=== PATIENT | female | born 1975 | race Caucasian/White ===

== ENCOUNTER 2017-09-26 06:10 | Observation (INO) ==
--- NOTE | 2017-09-26 08:21 | General Surg History&Physical ---
Date of Encounter: 09/26/17 Time of Encounter: 08:00 Assessment and Plan (1) Acute appendicitis Current Visit: No Status: Acute The assessment and plan as outlined above was discussed with the patient and/or family members who expressed understanding and agreement. All questions were answered. The patient has CAT scan evidence and physical examination evidence of acute appendicitis. She has a mild leukocytosis and negative test. We will plan urgent laparoscopic appendectomy. Qualifiers: Acute appendicitis type: with localized peritonitis Qualified Code(s): K35.3 - Acute appendicitis with localized peritonitis History of Present Illness Chief complaint: Right lower quadrant abdominal pain HPI: Ms. Villalobos is a 42 year old female Who had acute onset abdominal pain late yesterday. The pain worsened throughout the evening. She has pain with motion. She is anorexic. She sought evaluation in the [facility] emergency room. CAT scan demonstrated acute appendicitis. She was transferred for further evaluation. This morning on history she states that she has localized right lower quadrant abdominal pain and pain with motion. I personally reviewed the CAT scan images. Findings are consistent with acute appendicitis. We will plan urgent laparoscopic appendectomy Past Med Surg Social Fam HX - Past Medical History Medical history: other Psychiatric history: depression - Past Surgical History Surgical History: other - Social History Smoking Status: Never smoker Smokeless Tobacco Status: No Alcohol use: none Drug use: none Medications and Allergies Amoxil 09/26/17 [History] Guaifenesin/Dm/Pseudoephedrine [Capmist Dm Tablet] 1 each PO 09/26/17 [History] HydrOXYzine Pamoate [Vistaril] 50 mg PO PRN PRN 09/26/17 [History] Sertraline [Zoloft] 50 mg PO DAILY 09/26/17 [History] 3 Allergy/AdvReac Type Severity Reaction Status Date / Time No Known Allergies Allergy Verified 02/28/16 06:46 Review of Systems All systems PM: The remainder of the systems were reviewed and are negative General Surgery Exam Initial Vital Signs Temp Pulse Resp BP Pulse Ox 98.5 F 97 14 100/67 97 09/26/17 08:15 09/26/17 08:15 09/26/17 08:15 09/26/17 08:15 09/26/17 08:15 - General physical appearance well developed, well nourished, no distress - Respiratory normal expansion, normal respiratory effort, clear to percussion, clear to auscultation - Cardiovascular Cardiovascular exam: Present: RRR, no murmurs/rubs/gallops - Abdomen Abdomen general surgery: Present: guarding, rebound Abdominal Tenderness: Present: RLQ - Neurologic Present: CN 2-12 grossly intact, normal coordination, normal sensation - Psychiatric Psychiatric general surgery: Present: appropriate, oriented to person, oriented to place, oriented to time, speech is normal, memory intact Results - Labs All other labs normal. - Imaging CT scan - abdomen: image reviewed (I personally reviewed the CAT scan images. Findings are consistent with acute appendicitis.)
[2017-09-26] MEDS ORDERED: Ondansetron 4 MG/2 ML VIAL IVP PRN ×2 (08:24→11:33)
[2017-09-26] MEDS ORDERED: *HR* OxyCODONE/APAP 10/325 TABLET PO PRN ×2 (08:24→11:33)
[2017-09-26] MEDS ORDERED: 0.9 % Sodium Chloride 1,000 ML IVC SCH (08:30)
[2017-09-26] MEDS ORDERED: *HR* Midazolam HCl 2 MG/2 ML VIAL ONE (09:10)
[2017-09-26] MEDS ORDERED: *HR* Propofol 200 MG/20 ML VIAL IVP ONE (09:10)
[2017-09-26] MEDS ORDERED: *HR* FentaNYL (PF) 100 MCG/2 ML VIAL ONE (09:10)
[2017-09-26] MEDS ORDERED: *HR* Succinylcholine 200 MG/10 ML VIAL IVP ONE (09:11)
[2017-09-26] MEDS ORDERED: Lidocaine -MPF 2% 2 ML VIAL ONE (09:11)
[2017-09-26] MEDS ORDERED: *HR* Cisatracurium 10 MG/5 ML VIAL IV ONE (09:11)
[2017-09-26] MEDS ORDERED: Lidocaine -MPF 4% 5 ML AMPUL ONE (09:33)
[2017-09-26] MEDS ORDERED: CefOXitin 1,000 MG VIAL ONE (09:40)
--- NOTE | 2017-09-26 09:40 | Anesthesia Evaluation PreOp ---
Date of Encounter: 09/26/17 Time of Encounter: 09:38 - Past History Planned Operation: Laparoscopic Appendectomy Cardiac History: Denies any Significant Hx Pulmonary History: Other (S/P URI x 1 week) TOBACCO SIEVE OPERATOR History: Denies Any Significant HX Other Medical History: Other (anxiety/depression) Anesthesia History: No Prior Anesthetic Complications, Past Anesthesia Test: Negative (09/26/2017) Alcohol Use: none Drug use: none Medications and Allergies Amoxicillin/Clavulanate [Augmentin] 09/26/17 [History] MethylPREDNISolone [MethylPREDNISolone Dose Pack] 4 mg PO 09/26/17 [History] Sertraline [Zoloft] 50 mg PO DAILY 09/26/17 [History] 3 Allergy/AdvReac Type Severity Reaction Status Date / Time No Known Allergies Allergy Verified 02/28/16 06:46 - Meds/Allergy Pre-op Review Medications Reviewed: Yes Allergies Reviewed: Yes Beta Blockers on Current Med List: No Anesthesia Results - Labs 09/26/17 09/26/17 09/26/17 04:33 04:45 04:45 WBC 11.5 H Hgb 12.4 Hct 36.1 Plt Count 242 Sodium 135 L Potassium 3.8 BUN 11 Creatinine 0.78 Urine Test Negative - Imaging Additional studies: Laboratory Tests Anesthesia Exam Vital Signs/O2 Sat, Most Current Temp Pulse Resp BP Pulse Ox 98.5 F 97 14 100/67 97 09/26/17 08:15 09/26/17 08:15 09/26/17 08:15 09/26/17 08:15 09/26/17 08:15 Height: 5'4''/1.63m Weight: 191 lbs/86.8 kg NPO (# of Hours): 8 Pain Scale: 0 Pain Scale Used: Numeric (1 - 10) - HEENT Pupil (Motor): EOMI Mallampati: III Teeth: Normal Oral Opening: Greater than 3 - TOBACCO SIEVE OPERATOR LOC: Oriented TOBACCO SIEVE OPERATOR Motor: Normal RUE, Normal LUE, Normal RLE, Normal LLE, Normal Face TOBACCO SIEVE OPERATOR Sensory: Normal: RUE, LUE, RLE, LLE, Face - Cardiac Rhythm: Regular Murmur: None - Pulmonary Breath Sounds: bilateral Clear Respiratory Effort: Symmetrical Anesthesia Assess/Plan ASA Score: 2 Modified Julio Cesar Scale for Level of Consciousness: Cooperative, oriented, and tranquil Anesthetic Plan: General Monitoring Plan: Standard Monitors Recovery Plan: PACU
[2017-09-26] MEDS ORDERED: Albuterol 2.5 MG/3 ML NEBULIZER ONE (09:46)
[2017-09-26] MEDS ORDERED: Albuterol 2.5 MG/3 ML NEBULIZER IH ONE (09:48)
[2017-09-26] MEDS ORDERED: *HR* OxyCODONE Immed Rel 5 MG TABLET PO PRN (09:49)
[2017-09-26] MEDS ORDERED: *HR* Promethazine 25 MG/ML VIAL IVP PRN (09:49)
[2017-09-26] MEDS ORDERED: *HR* FentaNYL (PF) 100 MCG/2 ML VIAL IVP PRN (09:49)
[2017-09-26] MEDS ORDERED: Acetaminophen IV 1,000 MG/100 ML INFUS..BTL ONE (09:51)
[2017-09-26] MEDS ORDERED: cefOXitin 1,000 MG, Sodium Chloride IRRigation 1,000 ML IR ONE (10:00)
[2017-09-26] MEDS ORDERED: CefOXitin 2,000 MG VIAL ONE (10:00)
[2017-09-26] MEDS ORDERED: Dexamethasone 4 MG/ML VIAL ONE (10:24)
[2017-09-26] MEDS ORDERED: Ondansetron 4 MG/2 ML VIAL ONE (10:24)
[2017-09-26] MEDS ORDERED: Ketorolac 30 MG/ML VIAL ONE (10:39)
--- NOTE | 2017-09-26 10:53 | Operative Note ---
Date of procedure: 09/26/17 Pre-op diagnosis: Acute appendicitis Post-op diagnosis: other (Perforated appendicitis with fecalith in the abdomen and free pus) Procedure: Laparoscopic appendectomy Anesthesia: SIDRA Surgeon: Manuel De León Was there an assistant customer service manager present: No Estimated blood loss (cc): 10 Specimen: Perforated appendix and appendicolith Condition: stable Disposition: PACU Procedure in Detail: After informed consent the patient was taken to the major operative suite placed in the supine position given adequate general anesthetic. The abdomen was prepped and draped in sterile fashion utilizing ChloraPrep standard draping techniques. Timeout was taken and the patient is identified. I made a vertical midline incision below the umbilicus and dissected down to level of fascia. 2 traction stitches of 0 Vicryl placed fashion. Placed a Bass trocar into the abdomen under direct vision. Abdomen was insufflated to 15 mmHg pressure CO2. I placed a 5 mm trocar in the suprapubic area and a 12 mm trocar in the right upper quadrant. The perforated appendix was visualized. There was free pus. There is a free appendicolith in the right gutter. The appendix was densely adherent. I mobilized the lateral peritoneal attachments. The forceps were used to make a window between the mesial appendix and the base of the cecum. I then used a vascular stapler to divide the mesial appendix. Hemostasis was not complete. I placed 2 10 mm clips on the staple line and this insured complete hemostasis. The appendix was then divided off the base the cecum with a gastrointestinal load on the laparoscopic stapler. I recovered the appendix and the appendicolith in a specimen bag and removed them from the abdomen. The right gutter was irrigated with copious amounts of antibiotic containing solution. Fascia was closed with 0 Vicryl the skin with 2 -0 Vicryl and 4-0 Vicryl. She tolerated the procedure well.
--- NOTE | 2017-09-26 11:24 | Anesthesia Evaluation Post Op ---
Date of Encounter: 09/26/17 Time of Encounter: 11:23 - Vital Signs Vital Signs: Vital Signs/O2 Sat, Most Current Temp Pulse Resp BP Pulse Ox 97.4 F L 98 20 105/61 96 09/26/17 10:55 09/26/17 11:15 09/26/17 11:15 09/26/17 11:15 09/26/17 11:15 - Lungs Lungs: Clear Ascult./Percussion - Airway Airway: Non-obstructed - Cardiovascular Regular Rate - Mental Status Mental Status: Asleep with brisk response to light stimulation - Pain Pain Scale: 4 Pain Scale used: Numeric (1 - 10) - Nausea Vomiting Nausea Vomiting: Not Present - Hydration Hydration: NPO, Has not voided - Discharge PostOp Status: Transfer Patient to floor
[2017-09-26] MEDS ORDERED: OXYCODONE Oral CONC 10 MG/0.5 ML ORAL.SYG SL PRN (11:33)
[2017-09-26] MEDS: *HR* HYDROcodone/Acet 10/325 mg TABLET PO PRN ×2 (12:09→19:37)
[2017-09-26] MEDS: 0.9 % Sodium Chloride 1,000 ML IVC SCH (15:58)
[2017-09-26] MEDS: Piperacillin/Tazobactam 3.375 GM in 0.9 % Sodium Chloride Mini Bag 100 ML IVPB SCH ×2 (15:58→23:30)
[2017-09-27] MEDS: *HR* HYDROcodone/Acet 10/325 mg TABLET PO PRN ×4 (00:43→22:10)
[2017-09-27] MEDS: 0.9 % Sodium Chloride 1,000 ML IVC SCH (02:05)
[2017-09-27 05:28] LABS: Basophils % 0.1 %; Eosinophils % 0.2 %; Hematocrit 30.3 % (35.3-44.9); Immature Granulocytes % 0.5 % (0-4); Lymphocytes # 0.9 K/mcL (0.6-4.6); Lymphocytes % 7.6 %; Mean Corpuscular Hemoglobin 29.2 pg (28.0-33.3); Mean Corpuscular Volume 88.6 fL (83.0-100.0); Mean Platelet Volume 9.9 fL (9.4-12.4); Monocytes # 0.6 K/mcL (0.0-1.3); Monocytes % 4.8 %; Platelet Count 227 K/mcL (140-400); Red Blood Count 3.42 M/mcL (3.82-4.97); Red Cell Distribution Width 12.6 % (11.5-14.5); Segmented Neutrophils % 86.8 %
[2017-09-27 05:49] LABS: BUN/Creatinine Ratio 16 (6-26); Blood Urea Nitrogen 10 mg/dL (6-20); Calcium 8.1 mg/dL (8.6-10.3); Carbon Dioxide 23 mEq/L (23-29); Chloride 110 mEq/L (98-107); Glucose 107 mg/dL (70-105); Osmolality,Calculated 286 (280-300); Potassium 3.7 mEq/L (3.5-5.1); Sodium 138 mEq/L (136-145); eGFR For African Americans > 60 (> 60); eGFR For Non-African Americans > 60 (> 60)
[2017-09-27] MEDS: Piperacillin/Tazobactam 3.375 GM in 0.9 % Sodium Chloride Mini Bag 100 ML IVPB SCH ×3 (08:58→23:48)
--- NOTE | 2017-09-27 09:36 | General Surgery Progress Note ---
<Say Parra - Last Filed: 09/27/17 09:54> Date of Encounter: 09/27/17 Time of Encounter: 07:40 - Assessment and Plan (1) Acute appendicitis Current Visit: Yes Status: Acute POD#[address] De León in setting of perforated appendix. Presence of free pus and free appendicolith in the right gutter. On Zosyn, afebrile, 11.[address] Plan: Patient continuing Zosyn Clear liquid diet Incentive Spirometry Supportive care and pain management AM labs Qualifiers: Acute appendicitis type: unspecified acute appendicitis type Qualified Code (s): K35.80 - Unspecified acute appendicitis Subjective Narrative: Ms. Villalobos, POD#1 s/p lap appy with Dr. De León. Discussed with patient the presence of perforated appendix and free appendicolith and indication for antibiotics and observation for at least one more day. She denies nausea/ vomiting, pain is controlled, denies fevers. Awaiting return of bowel function. Objective Vital Signs - Last 8 Hours Temp Pulse Resp BP Pulse Ox 09/27/17 06:57 98.4 F 90 18 105/69 97 09/27/17 03:59 98.3 F 83 14 93/58 97 Intake and Output 09/26/17 09/27/17 09/27/17 23:59 07:59 15:59 Intake Total 940 / 940 1500 / 1500 520 / 520 Output Total 0 / 0 Balance 940 / 940 1500 / 1500 520 / 520 Intake: IV Fluids 100 / 100 1100 / 1100 0.9 % Sodium Chloride 1,000 ML 1000 / 1000 @ 100 mls/hr IVC .Q10H [facility] Rx#: [id number] Zosyn 3.375 GM In 0.9 % Sodium 100 / 100 100 / 100 Chloride (Mini-Bag +) 100 ML @ 25 mls/hr IVPB Q8HR [facility] Rx#: [id number] Oral 840 / 840 400 / 400 520 / 520 Output: Urine 0 / 0 Other: Meal clears Breakfast Percent of Meal Consumed 75% # Voids 0 1 # Bowel Movements 0 Weight 88.9 kg Patient Weight 09/27/17 23:59 Weight 88.9 kg - General physical appearance well developed, well nourished, no distress - Eyes normal ocular movement - ENT normal mucosa - Neck Neck exam: no lymphadectomy - Respiratory normal expansion, normal respiratory effort, clear to percussion - Cardiovascular Cardiovascular exam: Present: RRR, no murmurs/rubs/gallops. Absent: JVD - Abdomen Abdomen: Present: soft. Absent: guarding, rigid - Incision Incision: Present: clean and dry, intact - Integumentary no abnormal pigmentation - Neurologic normal coordination, normal sensation - Psychiatric speech is normal, memory intact - Labs 09/27/17 04:45 09/27/17 04:45 Diabetes panel 09/27/17 Range/Units 04:45 Sodium 138 (136-145) mEq/L Potassium 3.7 (3.5-5.1) mEq/L Chloride 110 H (98-107) mEq/L Carbon Dioxide 23 (23-29) mEq/L BUN 10 (6-20) mg/dL Creatinine 0.61 (0.60-1.20) mg/dL Glucose 107 H (70-105) mg/dL Calcium 8.1 L (8.6-10.3) mg/dL Calcium panel 09/27/17 Range/Units 04:45 Calcium 8.1 L (8.6-10.3) mg/dL Pituitary panel 09/27/17 Range/Units 04:45 Sodium 138 (136-145) mEq/L Potassium 3.7 (3.5-5.1) mEq/L Chloride 110 H (98-107) mEq/L Carbon Dioxide 23 (23-29) mEq/L BUN 10 (6-20) mg/dL Creatinine 0.61 (0.60-1.20) mg/dL Glucose 107 H (70-105) mg/dL Calcium 8.1 L (8.6-10.3) mg/dL Adrenal panel 09/27/17 Range/Units 04:45 Sodium 138 (136-145) mEq/L Potassium 3.7 (3.5-5.1) mEq/L Chloride 110 H (98-107) mEq/L Carbon Dioxide 23 (23-29) mEq/L BUN 10 (6-20) mg/dL Creatinine 0.61 (0.60-1.20) mg/dL Glucose 107 H (70-105) mg/dL Calcium 8.1 L (8.6-10.3) mg/dL Consult Discharge Plan - Plan Additional Instructions: General Surgical Discharge Instructions 1. No pushing, pulling, or lifting greater than 15 lbs for 2-4 weeks (depending upon procedure). 2. You may shower beginning today, but no tub baths, soaking, or swimming for 2 weeks. 3. You may resume driving when you are off narcotics and are safe to react in a car. 4. Take ibuprofen every 8 hours for discomfort. If this does not relieve discomfort, you may take the as needed Percocet. Take narcotics as directed. Do not take more narcotics then directed and do not share your narcotics with any other person. Do not drink alcohol while on narcotics. 5. Take stool softeners (Colace) or a water based laxative (Miralax) while taking narcotics. You may hold for loose stools. 6. Report any fevers greater than 100.5F, increase abdominal discomfort, drainage that looks like pus, increased redness or pain at the surgical site, or any vomiting. 7. Report any pain in the calves, shortness of breath, or rapid heartbeat. 8. Follow-up in the office as directed. 9. If you were prescribed antibiotics, do not stop them without talking to your provider. Referrals: Harlan Mercedes CNP [Primary Care Provider] - Jami Andrews CNP [Advanced Practice Nurse] - 10/19/17 3:00 pm - Patient Status Disposition: Home, Self-Care Condition: Good Overall status at discharge: patient is progressing back to baseline - Discharge Instructions Follow Up With: Harlan Mercedes CNP [Primary Care Provider] - Jami Andrews CNP [Advanced Practice Nurse] - 10/19/17 3:00 pm Additional Instructions: General Surgical Discharge Instructions 1. No pushing, pulling, or lifting greater than 15 lbs for 2-4 weeks (depending upon procedure). 2. You may shower beginning today, but no tub baths, soaking, or swimming for 2 weeks. 3. You may resume driving when you are off narcotics and are safe to react in a car. 4. Take ibuprofen every 8 hours for discomfort. If this does not relieve discomfort, you may take the as needed Percocet. Take narcotics as directed. Do not take more narcotics then directed and do not share your narcotics with any other person. Do not drink alcohol while on narcotics. 5. Take stool softeners (Colace) or a water based laxative (Miralax) while taking narcotics. You may hold for loose stools. 6. Report any fevers greater than 100.5F, increase abdominal discomfort, drainage that looks like pus, increased redness or pain at the surgical site, or any vomiting. 7. Report any pain in the calves, shortness of breath, or rapid heartbeat. 8. Follow-up in the office as directed. 9. If you were prescribed antibiotics, do not stop them without talking to your provider. - Diet and Activity Activity: increase activity as tolerated <Manuel De León - Last Filed: 09/27/17 16:58> Date of Encounter: 09/27/17 - Assessment and Plan (1) Acute appendicitis Current Visit: No Status: Inactive Qualifiers: Acute appendicitis type: with localized peritonitis Qualified Code(s): K35.3 - Acute appendicitis with localized peritonitis Objective Vital Signs - Last 8 Hours Temp Pulse Resp BP Pulse Ox 09/27/17 14:52 99.6 F 99 18 97/62 95 09/27/17 11:50 98.7 F 90 18 99/65 96 Intake and Output 09/27/17 09/27/17 09/27/17 07:59 15:59 23:59 Intake Total 1500 / 1500 620 / 620 Output Total 0 / 0 0 / 0 Balance 1500 / 1500 620 / 620 Intake: IV Fluids 1100 / 1100 100 / 100 0.9 % Sodium Chloride 1,000 ML 1000 / 1000 @ 100 mls/hr IVC .Q10H [facility] Rx#: [id number] Zosyn 3.375 GM In 0.9 % Sodium 100 / 100 100 / 100 Chloride (Mini-Bag +) 100 ML @ 25 mls/hr IVPB Q8HR [facility] Rx#: [id number] Oral 400 / 400 520 / 520 Output: Urine 0 / 0 0 / 0 Other: Meal keep # Voids 1 # Bowel Movements 0 Weight 88.9 kg Patient Weight 09/27/17 23:59 Weight 88.9 kg - Labs 09/27/17 04:45 09/27/17 04:45 Diabetes panel 09/27/17 Range/Units 04:45 Sodium 138 (136-145) mEq/L Potassium 3.7 (3.5-5.1) mEq/L Chloride 110 H (98-107) mEq/L Carbon Dioxide 23 (23-29) mEq/L BUN 10 (6-20) mg/dL Creatinine 0.61 (0.60-1.20) mg/dL Glucose 107 H (70-105) mg/dL Calcium 8.1 L (8.6-10.3) mg/dL Calcium panel 09/27/17 Range/Units 04:45 Calcium 8.1 L (8.6-10.3) mg/dL Pituitary panel 09/27/17 Range/Units 04:45 Sodium 138 (136-145) mEq/L Potassium 3.7 (3.5-5.1) mEq/L Chloride 110 H (98-107) mEq/L Carbon Dioxide 23 (23-29) mEq/L BUN 10 (6-20) mg/dL Creatinine 0.61 (0.60-1.20) mg/dL Glucose 107 H (70-105) mg/dL Calcium 8.1 L (8.6-10.3) mg/dL Adrenal panel 09/27/17 Range/Units 04:45 Sodium 138 (136-145) mEq/L Potassium 3.7 (3.5-5.1) mEq/L Chloride 110 H (98-107) mEq/L Carbon Dioxide 23 (23-29) mEq/L BUN 10 (6-20) mg/dL Creatinine 0.61 (0.60-1.20) mg/dL Glucose 107 H (70-105) mg/dL Calcium 8.1 L (8.6-10.3) mg/dL - Attending Attestation I examined this patient and my medical decision-making was reviewed with the Resident Physician. I agree with the documented findings, disposition and treatment plan as described except to the extent set forth below. The patient is seen and evaluated on morning rounds with the resident. She had fully perforated acute appendicitis with pus in the abdomen as well as a free appendicolith. I would like to continue intravenous antibiotics today. Continue supportive care and advance diet Manuel De León MD FACS
[2017-09-27] MEDS: Acetaminophen 325 MG TABLET PO PRN (21:14)
[2017-09-28 04:59] LABS: Basophils # 0.1 K/mcL (0.0-0.2); Basophils % 0.5 %; Eosinophils # 0.3 K/mcL (0.0-0.6); Eosinophils % 2.7 %; Hematocrit 31.6 % (35.3-44.9); Hemoglobin 10.8 g/dL (11.5-15.4); Immature Granulocytes % 1.7 % (0-4); Lymphocytes # 1.4 K/mcL (0.6-4.6); Lymphocytes % 12.6 %; Mean Corpuscular HGB Conc 34.2 g/dL (31.6-35.5); Mean Corpuscular Hemoglobin 29.8 pg (28.0-33.3); Mean Corpuscular Volume 87.1 fL (83.0-100.0); Mean Platelet Volume 10.2 fL (9.4-12.4); Monocytes # 0.7 K/mcL (0.0-1.3); Monocytes % 6.2 %; Neutrophils # 8.4 K/mcL (1.6-8.9); Platelet Count 213 K/mcL (140-400); Red Blood Count 3.63 M/mcL (3.82-4.97); Red Cell Distribution Width 12.6 % (11.5-14.5); Segmented Neutrophils % 76.3 %
[2017-09-28 05:31] LABS: Platelet Estimate Normal (Normal)
[2017-09-28 05:51] LABS: BUN/Creatinine Ratio 12 (6-26); Blood Urea Nitrogen 8 mg/dL (6-20); Calcium 8.3 mg/dL (8.6-10.3); Carbon Dioxide 18 mEq/L (23-29); Chloride 113 mEq/L (98-107); Glucose 103 mg/dL (70-105); Osmolality,Calculated 289 (280-300); Potassium 4.6 mEq/L (3.5-5.1); Sodium 140 mEq/L (136-145); eGFR For African Americans > 60 (> 60); eGFR For Non-African Americans > 60 (> 60)
[2017-09-28] MEDS: *HR* HYDROcodone/Acet 10/325 mg TABLET PO PRN ×3 (07:53→22:53)
[2017-09-28] MEDS: Piperacillin/Tazobactam 3.375 GM in 0.9 % Sodium Chloride Mini Bag 100 ML IVPB SCH ×2 (07:53→17:02)
[2017-09-28] MEDS: Acetaminophen 325 MG TABLET PO PRN ×2 (08:51→22:52)
[2017-09-28] MEDS ORDERED: Ibuprofen 800 MG TABLET PO PRN (09:01)
[2017-09-28] MEDS ORDERED: Ondansetron ODT 4 MG TAB.RAPDIS SL PRN (09:03)
--- NOTE | 2017-09-28 09:47 | General Surgery Progress Note ---
<Say Parra - Last Filed: 09/28/17 09:50> Date of Encounter: 09/28/17 Time of Encounter: 07:25 - Assessment and Plan (1) Acute appendicitis Current Visit: Yes Status: Acute POD#[address] De León in setting of perforated appendix. There was presence of free pus and free appendicolith in the right gutter, necessitating IV abx. On Zosyn, had fever overnight tmax 102.2, wt ct 11.0 (11.5) Plan: Patient to stay at least another 24 hours due to post-op fever Patient continuing Zosyn Advancing to regular diet as tolerated Incentive Spirometry Supportive care and pain management AM labs Qualifiers: Acute appendicitis type: unspecified acute appendicitis type Qualified Code (s): K35.80 - Unspecified acute appendicitis Subjective Patient reports: tolerating liquids well, voiding w/o difficulty, afebrile Narrative: Patient had a fever overnight, tmax 102.2; she denies headache, nausea, vomiting , shortness of breath, dysuria. She states her pain is controlled well. She is tolerating her clear liquid diet. Objective Vital Signs - Last 8 Hours Temp Pulse Resp BP Pulse Ox 09/28/17 08:29 101.4 F H 98 16 92/56 93 09/28/17 03:52 99.1 F 96 14 106/66 91 Intake and Output 09/27/17 09/28/17 09/28/17 23:59 07:59 15:59 Intake Total 100 / 100 500 / 500 Balance 100 / 100 500 / 500 Intake: IV Fluids 100 / 100 100 / 100 Zosyn 3.375 GM In 0.9 % Sodium 100 / 100 100 / 100 Chloride (Mini-Bag +) 100 ML @ 25 mls/hr IVPB Q8HR [facility] Rx#: [id number] Oral 400 / 400 Other: # Voids 1 2 1 # Bowel Movements 0 Weight 89.2 kg Patient Weight 09/28/17 23:59 Weight 89.2 kg - General physical appearance well developed, well nourished, no distress - Eyes normal ocular movement - ENT normal mucosa - Neck Neck exam: no lymphadectomy - Respiratory normal expansion, normal respiratory effort, clear to auscultation - Cardiovascular Cardiovascular exam: Present: RRR, no murmurs/rubs/gallops. Absent: JVD - Abdomen Abdomen: Present: soft. Absent: guarding, rigid Hernia: none - Incision Incision: Present: clean and dry, intact. Absent: swollen, inflamed - Integumentary no abnormal pigmentation - Neurologic normal coordination, normal sensation - Musculoskeletal normal posture - Psychiatric speech is normal, memory intact - Labs 09/28/17 04:43 09/28/17 04:43 Diabetes panel 09/28/17 Range/Units 04:43 Sodium 140 (136-145) mEq/L Potassium 4.6 (3.5-5.1) mEq/L Chloride 113 H (98-107) mEq/L Carbon Dioxide 18 L (23-29) mEq/L BUN 8 (6-20) mg/dL Creatinine 0.68 (0.60-1.20) mg/dL Glucose 103 (70-105) mg/dL Calcium 8.3 L (8.6-10.3) mg/dL Calcium panel 09/28/17 Range/Units 04:43 Calcium 8.3 L (8.6-10.3) mg/dL Pituitary panel 09/28/17 Range/Units 04:43 Sodium 140 (136-145) mEq/L Potassium 4.6 (3.5-5.1) mEq/L Chloride 113 H (98-107) mEq/L Carbon Dioxide 18 L (23-29) mEq/L BUN 8 (6-20) mg/dL Creatinine 0.68 (0.60-1.20) mg/dL Glucose 103 (70-105) mg/dL Calcium 8.3 L (8.6-10.3) mg/dL Adrenal panel 09/28/17 Range/Units 04:43 Sodium 140 (136-145) mEq/L Potassium 4.6 (3.5-5.1) mEq/L Chloride 113 H (98-107) mEq/L Carbon Dioxide 18 L (23-29) mEq/L BUN 8 (6-20) mg/dL Creatinine 0.68 (0.60-1.20) mg/dL Glucose 103 (70-105) mg/dL Calcium 8.3 L (8.6-10.3) mg/dL - VTE Documentation of Mechanical Device: Intermittent pneumatic compression device Consult Discharge Plan - Plan Additional Instructions: General Surgical Discharge Instructions 1. No pushing, pulling, or lifting greater than 15 lbs for 2-4 weeks (depending upon procedure). 2. You may shower beginning today, but no tub baths, soaking, or swimming for 2 weeks. 3. You may resume driving when you are off narcotics and are safe to react in a car. 4. Take ibuprofen every 8 hours for discomfort. If this does not relieve discomfort, you may take the as needed Percocet. Take narcotics as directed. Do not take more narcotics then directed and do not share your narcotics with any other person. Do not drink alcohol while on narcotics. 5. Take stool softeners (Colace) or a water based laxative (Miralax) while taking narcotics. You may hold for loose stools. 6. Report any fevers greater than 100.5F, increase abdominal discomfort, drainage that looks like pus, increased redness or pain at the surgical site, or any vomiting. 7. Report any pain in the calves, shortness of breath, or rapid heartbeat. 8. Follow-up in the office as directed. 9. If you were prescribed antibiotics, do not stop them without talking to your provider. Referrals: Jami Andrews VICE PRESIDENT OF SOFTWARE DEVELOPMENT [Advanced Practice Nurse] - 10/19/17 3:00 pm <Manuel De León - Last Filed: 09/28/17 16:04> Date of Encounter: 09/28/17 - Assessment and Plan (1) Acute appendicitis Current Visit: No Status: Inactive Qualifiers: Acute appendicitis type: with localized peritonitis Qualified Code(s): K35.3 - Acute appendicitis with localized peritonitis Objective Vital Signs - Last 8 Hours Temp Pulse Resp BP Pulse Ox 09/28/17 14:00 98.2 F 70 16 113/73 93 09/28/17 10:26 98.9 F 85 15 94/61 96 09/28/17 08:29 101.4 F H 98 16 92/56 93 Intake and Output 09/28/17 09/28/17 09/28/17 07:59 15:59 23:59 Intake Total 500 / 500 220 / 220 Output Total 0 / 0 Balance 500 / 500 220 / 220 Intake: IV Fluids 100 / 100 100 / 100 Zosyn 3.375 GM In 0.9 % Sodium 100 / 100 100 / 100 Chloride (Mini-Bag +) 100 ML @ 25 mls/hr IVPB Q8HR [facility] Rx#: [id number] Oral 400 / 400 120 / 120 Output: Urine 0 / 0 Other: Meal Lunch Percent of Meal Consumed 80% # Voids 2 1 # Bowel Movements 0 Weight 89.2 kg Patient Weight 09/28/17 23:59 Weight 89.2 kg - Labs 09/28/17 04:43 09/28/17 04:43 Diabetes panel 09/28/17 Range/Units 04:43 Sodium 140 (136-145) mEq/L Potassium 4.6 (3.5-5.1) mEq/L Chloride 113 H (98-107) mEq/L Carbon Dioxide 18 L (23-29) mEq/L BUN 8 (6-20) mg/dL Creatinine 0.68 (0.60-1.20) mg/dL Glucose 103 (70-105) mg/dL Calcium 8.3 L (8.6-10.3) mg/dL Calcium panel 09/28/17 Range/Units 04:43 Calcium 8.3 L (8.6-10.3) mg/dL Pituitary panel 09/28/17 Range/Units 04:43 Sodium 140 (136-145) mEq/L Potassium 4.6 (3.5-5.1) mEq/L Chloride 113 H (98-107) mEq/L Carbon Dioxide 18 L (23-29) mEq/L BUN 8 (6-20) mg/dL Creatinine 0.68 (0.60-1.20) mg/dL Glucose 103 (70-105) mg/dL Calcium 8.3 L (8.6-10.3) mg/dL Adrenal panel 09/28/17 Range/Units 04:43 Sodium 140 (136-145) mEq/L Potassium 4.6 (3.5-5.1) mEq/L Chloride 113 H (98-107) mEq/L Carbon Dioxide 18 L (23-29) mEq/L BUN 8 (6-20) mg/dL Creatinine 0.68 (0.60-1.20) mg/dL Glucose 103 (70-105) mg/dL Calcium 8.3 L (8.6-10.3) mg/dL - Attending Attestation I examined this patient and my medical decision-making was reviewed with the Resident Physician. I agree with the documented findings, disposition and treatment plan as described except to the extent set forth below. The patient is seen and evaluated on morning rounds with resident. The patient had febrile episodes to 102.0 last night. We will continue intravenous antibiotics until the febrile episodes have resolved. Manuel De León MD FACS
[2017-09-29] MEDS: Piperacillin/Tazobactam 3.375 GM in 0.9 % Sodium Chloride Mini Bag 100 ML IVPB SCH ×4 (00:09→23:42)
[2017-09-29 05:09] LABS: Basophils % 0.4 %; Eosinophils # 0.3 K/mcL (0.0-0.6); Eosinophils % 4.2 %; Hematocrit 29.2 % (35.3-44.9); Hemoglobin 9.9 g/dL (11.5-15.4); Immature Granulocytes % 0.5 % (0-4); Lymphocytes # 1.2 K/mcL (0.6-4.6); Lymphocytes % 16.8 %; Mean Corpuscular HGB Conc 33.9 g/dL (31.6-35.5); Mean Corpuscular Hemoglobin 29.5 pg (28.0-33.3); Mean Corpuscular Volume 86.9 fL (83.0-100.0); Mean Platelet Volume 9.7 fL (9.4-12.4); Monocytes # 0.5 K/mcL (0.0-1.3); Monocytes % 6.5 %; Neutrophils # 5.3 K/mcL (1.6-8.9); Platelet Count 238 K/mcL (140-400); Red Blood Count 3.36 M/mcL (3.82-4.97); Red Cell Distribution Width 12.5 % (11.5-14.5); Segmented Neutrophils % 71.6 %
[2017-09-29 05:33] LABS: BUN/Creatinine Ratio 14 (6-26); Blood Urea Nitrogen 9 mg/dL (6-20); Calcium 8.3 mg/dL (8.6-10.3); Carbon Dioxide 25 mEq/L (23-29); Chloride 108 mEq/L (98-107); Glucose 107 mg/dL (70-105); Osmolality,Calculated 289 (280-300); Potassium 3.4 mEq/L (3.5-5.1); Sodium 140 mEq/L (136-145); eGFR For African Americans > 60 (> 60); eGFR For Non-African Americans > 60 (> 60)
[2017-09-29] MEDS: *HR* HYDROcodone/Acet 10/325 mg TABLET PO PRN ×3 (07:45→23:45)
--- NOTE | 2017-09-29 09:25 | General Surgery Progress Note ---
<Say Parra - Last Filed: 09/29/17 09:30> Date of Encounter: 09/29/17 Time of Encounter: 07:00 - Assessment and Plan (1) Acute appendicitis Status: Acute POD#[address] De León in setting of perforated appendix. There was presence of free pus and free appendicolith in the right gutter, necessitating IV abx. On Zosyn, episodic fevers documented POD1 and 2; no peritoneal signs, dyspnea, dysuria, or diarrhea Plan: Will order CT abd/pelvis with IV/PO contrast 5/3 AM in setting of episodic fevers s/p lap appy for perforated appendix with free appendicolith Continuing Zosyn q8h Tolerating regular diet Incentive Spirometry Supportive care and pain management AM labs Qualifiers: Acute appendicitis type: unspecified acute appendicitis type Qualified Code (s): K35.80 - Unspecified acute appendicitis Subjective Narrative: Patient had fever of 101.6 last night. She denies dysuria, shortness of breath, diarrhea. Her pain is controlled, voiding without difficulty. Tolerating her regular diet without nausea or vomiting. Objective Vital Signs - Last 8 Hours Temp Pulse Resp BP Pulse Ox 09/29/17 06:42 98.4 F 78 16 95/64 98 09/29/17 03:33 98.3 F 75 14 108/72 96 Intake and Output 09/28/17 09/29/17 09/29/17 23:59 07:59 15:59 Intake Total 700 / 700 340 / 340 480 / 480 Output Total 300 / 300 300 / 300 Balance 400 / 400 40 / 40 480 / 480 Intake: IV Fluids 100 / 100 100 / 100 Zosyn 3.375 GM In 0.9 % Sodium 100 / 100 100 / 100 Chloride (Mini-Bag +) 100 ML @ 25 mls/hr IVPB Q8HR BRIANNE Rx#: [id number] Oral 600 / 600 240 / 240 480 / 480 Output: Urine 300 / 300 300 / 300 Other: Meal Dinner Breakfast Percent of Meal Consumed 30% 50% # Bowel Movements 0 Weight 87.2 kg Patient Weight 09/29/17 23:59 Weight 87.2 kg - General physical appearance well developed, well nourished, no distress - Eyes normal ocular movement - ENT normal mucosa - Neck Neck exam: no lymphadectomy - Respiratory normal expansion, normal respiratory effort, clear to auscultation - Cardiovascular Cardiovascular exam: Present: RRR, no murmurs/rubs/gallops. Absent: JVD - Abdomen Abdomen: Present: bowel sounds present, soft, non tender - Incision Incision: Present: clean and dry, intact - Integumentary no abnormal pigmentation - Neurologic normal coordination, normal sensation - Psychiatric speech is normal, memory intact - Labs 09/29/17 04:39 09/29/17 04:39 Diabetes panel 09/29/17 Range/Units 04:39 Sodium 140 (136-145) mEq/L Potassium 3.4 L D (3.5-5.1) mEq/L Chloride 108 H (98-107) mEq/L Carbon Dioxide 25 (23-29) mEq/L BUN 9 (6-20) mg/dL Creatinine 0.66 (0.60-1.20) mg/dL Glucose 107 H (70-105) mg/dL Calcium 8.3 L (8.6-10.3) mg/dL Calcium panel 09/29/17 Range/Units 04:39 Calcium 8.3 L (8.6-10.3) mg/dL Pituitary panel 09/29/17 Range/Units 04:39 Sodium 140 (136-145) mEq/L Potassium 3.4 L D (3.5-5.1) mEq/L Chloride 108 H (98-107) mEq/L Carbon Dioxide 25 (23-29) mEq/L BUN 9 (6-20) mg/dL Creatinine 0.66 (0.60-1.20) mg/dL Glucose 107 H (70-105) mg/dL Calcium 8.3 L (8.6-10.3) mg/dL Adrenal panel 09/29/17 Range/Units 04:39 Sodium 140 (136-145) mEq/L Potassium 3.4 L D (3.5-5.1) mEq/L Chloride 108 H (98-107) mEq/L Carbon Dioxide 25 (23-29) mEq/L BUN 9 (6-20) mg/dL Creatinine 0.66 (0.60-1.20) mg/dL Glucose 107 H (70-105) mg/dL Calcium 8.3 L (8.6-10.3) mg/dL - VTE Documentation of Mechanical Device: Intermittent pneumatic compression device Consult Discharge Plan - Plan Additional Instructions: General Surgical Discharge Instructions 1. No pushing, pulling, or lifting greater than 15 lbs for 2-4 weeks (depending upon procedure). 2. You may shower beginning today, but no tub baths, soaking, or swimming for 2 weeks. 3. You may resume driving when you are off narcotics and are safe to react in a car. 4. Take ibuprofen every 8 hours for discomfort. If this does not relieve discomfort, you may take the as needed Percocet. Take narcotics as directed. Do not take more narcotics then directed and do not share your narcotics with any other person. Do not drink alcohol while on narcotics. 5. Take stool softeners (Colace) or a water based laxative (Miralax) while taking narcotics. You may hold for loose stools. 6. Report any fevers greater than 100.5F, increase abdominal discomfort, drainage that looks like pus, increased redness or pain at the surgical site, or any vomiting. 7. Report any pain in the calves, shortness of breath, or rapid heartbeat. 8. Follow-up in the office as directed. 9. If you were prescribed antibiotics, do not stop them without talking to your provider. Referrals: Jami Andrews COMPOSITE TECHNICIAN [Advanced Practice Nurse] - 10/19/17 3:00 pm Prescriptions: Ibuprofen [Motrin] 800 mg PO Q8HR PRN #42 tablet PRN Reason: Pain Ondansetron HCl [Zofran] 4 mg PO Q8HR PRN #15 tab PRN Reason: Nausea Ciprofloxacin [Cipro] 500 mg PO BID #14 tablet Docusate [Colace] 100 mg PO BID PRN #30 capsule PRN Reason: Constipation Hydrocodone/Acetaminophen [Hydrocodone-Acetamin 10-300 mg] 1 each PO Q6H PRN 7 Days #24 tablet PRN Reason: Pain metroNIDAZOLE [Flagyl] 500 mg PO BID 7 Days #14 tablet <Manuel De León - Last Filed: 09/30/17 10:52> Date of Encounter: 09/29/17 - Assessment and Plan (1) Acute appendicitis Status: Inactive Qualifiers: Acute appendicitis type: with localized peritonitis Qualified Code(s): K35.3 - Acute appendicitis with localized peritonitis Objective Vital Signs - Last 8 Hours Temp Pulse Resp BP Pulse Ox 09/30/17 07:16 98.4 F 76 16 122/77 96 09/30/17 03:56 97.9 F 76 16 111/69 96 Intake and Output 09/29/17 09/30/17 09/30/17 23:59 07:59 15:59 Intake Total 1040 / 1040 400 / 400 Output Total 200 / 200 200 / 200 Balance 840 / 840 200 / 200 Intake: IV Fluids 100 / 100 100 / 100 Zosyn 3.375 GM In 0.9 % Sodium 100 / 100 100 / 100 Chloride (Mini-Bag +) 100 ML @ 25 mls/hr IVPB Q8HR BRIANNE Rx#: [id number] Oral 940 / 940 300 / 300 Output: Urine 200 / 200 200 / 200 Other: Meal Dinner Percent of Meal Consumed 100% # Bowel Movements 0 0 Weight 87.6 kg Patient Weight 09/30/17 23:59 Weight 87.6 kg - Labs 09/30/17 04:05 09/30/17 04:05 Diabetes panel 09/30/17 Range/Units 04:05 Sodium 139 (136-145) mEq/L Potassium 3.9 (3.5-5.1) mEq/L Chloride 106 (98-107) mEq/L Carbon Dioxide 27 (23-29) mEq/L BUN 8 (6-20) mg/dL Creatinine 0.66 (0.60-1.20) mg/dL Glucose 99 (70-105) mg/dL Calcium 9.1 (8.6-10.3) mg/dL Calcium panel 09/30/17 Range/Units 04:05 Calcium 9.1 (8.6-10.3) mg/dL Pituitary panel 09/30/17 Range/Units 04:05 Sodium 139 (136-145) mEq/L Potassium 3.9 (3.5-5.1) mEq/L Chloride 106 (98-107) mEq/L Carbon Dioxide 27 (23-29) mEq/L BUN 8 (6-20) mg/dL Creatinine 0.66 (0.60-1.20) mg/dL Glucose 99 (70-105) mg/dL Calcium 9.1 (8.6-10.3) mg/dL Adrenal panel 09/30/17 Range/Units 04:05 Sodium 139 (136-145) mEq/L Potassium 3.9 (3.5-5.1) mEq/L Chloride 106 (98-107) mEq/L Carbon Dioxide 27 (23-29) mEq/L BUN 8 (6-20) mg/dL Creatinine 0.66 (0.60-1.20) mg/dL Glucose 99 (70-105) mg/dL Calcium 9.1 (8.6-10.3) mg/dL - Attending Attestation I examined this patient and my medical decision-making was reviewed with the Resident Physician. I agree with the documented findings, disposition and treatment plan as described except to the extent set forth below. The patient is seen and evaluated on morning rounds with resident. She continues to have febrile episodes. The febrile episode we will get a CAT scan tomorrow morning. We will repeat her white blood cell count and followed the vital signs very closely in the morning. When she is afebrile for 24 hours we will transition to oral antibiotics. Manuel De León MD FACS
[2017-09-30 04:45] LABS: Basophils % 0.5 %; Eosinophils # 0.4 K/mcL (0.0-0.6); Eosinophils % 4.7 %; Hemoglobin 10.6 g/dL (11.5-15.4); Immature Granulocytes % 0.6 % (0-4); Lymphocytes # 1.6 K/mcL (0.6-4.6); Lymphocytes % 20.5 %; Mean Corpuscular HGB Conc 33.1 g/dL (31.6-35.5); Mean Corpuscular Hemoglobin 28.7 pg (28.0-33.3); Mean Corpuscular Volume 86.7 fL (83.0-100.0); Mean Platelet Volume 9.7 fL (9.4-12.4); Monocytes # 0.4 K/mcL (0.0-1.3); Monocytes % 5.2 %; Neutrophils # 5.5 K/mcL (1.6-8.9); Platelet Count 308 K/mcL (140-400); Red Blood Count 3.69 M/mcL (3.82-4.97); Red Cell Distribution Width 12.4 % (11.5-14.5); Segmented Neutrophils % 68.5 %
[2017-09-30 05:12] LABS: BUN/Creatinine Ratio 12 (6-26); Blood Urea Nitrogen 8 mg/dL (6-20); Calcium 9.1 mg/dL (8.6-10.3); Carbon Dioxide 27 mEq/L (23-29); Chloride 106 mEq/L (98-107); Glucose 99 mg/dL (70-105); Osmolality,Calculated 286 (280-300); Potassium 3.9 mEq/L (3.5-5.1); Sodium 139 mEq/L (136-145); eGFR For African Americans > 60 (> 60); eGFR For Non-African Americans > 60 (> 60)
[2017-09-30 05:21] LABS: Platelet Estimate Normal (Normal); Reactive Lymphocytes Present (Not Present)
[2017-09-30 07:18] VITALS: BP 122/77
[2017-09-30] MEDS: Piperacillin/Tazobactam 3.375 GM in 0.9 % Sodium Chloride Mini Bag 100 ML IVPB SCH (08:44)
[2017-09-30] MEDS: *HR* HYDROcodone/Acet 10/325 mg TABLET PO PRN (08:44)
--- NOTE | 2017-09-30 08:58 | Discharge Summary ---
<Say Parra - Last Filed: 09/30/17 09:18> Date of Encounter: 09/30/17 Time of Encounter: 06:55 - Discharge Diagnosis (1) Acute appendicitis Priority: Primary Status: Resolved Qualifiers: Acute appendicitis type: unspecified acute appendicitis type Qualified Code (s): K35.80 - Unspecified acute appendicitis General Surgery Exam Initial Vital Signs Pulse Ox 94 09/26/17 01:05 - General physical appearance well developed, well nourished, no distress - Eyes normal ocular movement - ENT normal nares, normal mucosa - Neck no lymphadectomy - Respiratory normal expansion, normal respiratory effort, clear to auscultation - Cardiovascular Cardiovascular exam: Present: RRR, no murmurs/rubs/gallops. Absent: JVD - Abdomen Abdomen general surgery: Present: soft - Incision Incision: Absent: clean and dry (trocar incisions without erythema or hematoma) - Integumentary Integumentary general surgery: Present: no abnormal pigmentation - Neurologic Present: normal coordination, normal sensation - Musculoskeletal Present: normal posture - Psychiatric Psychiatric general surgery: Present: speech is normal, memory intact - Hospital Course Hospital course: Ms. Villalobos is a 42 year old female who presented to [facility] with acute onset abdominal pain 09/25, as transfer from [place] where CT showed evidence of acute appendicitis. She underwent urgent laparoscopic appendectomy with Dr. De León. Appendix was found perforated with free pus and free appendicolith in right gutter. She tolerated the procedure well, was placed on zosyn q8h in setting of free pus intraperioneally. She developed short episodic fevers on POD1 and 2; tmax 102.6. On 09/29 patient was fever free, without leukocytosis, abdominal discomfort, and she tolerated her regular diet well without nausea or vomiting. We will discharge patient on 7 days of PO antibiotics (cipro/flagyl), she is following up with [facility] outpatient on 10/19 at 3pm. - Time Spent with Patient Total time spent providing and/or coordinating discharge services: - Discharge Medications Prescriptions: Ibuprofen [Motrin] 800 mg PO Q8HR PRN #42 tablet PRN Reason: Pain Ondansetron HCl [Zofran] 4 mg PO Q8HR PRN #15 tab PRN Reason: Nausea Ciprofloxacin [Cipro] 500 mg PO BID #14 tablet Docusate [Colace] 100 mg PO BID PRN #30 capsule PRN Reason: Constipation Hydrocodone/Acetaminophen [Hydrocodone-Acetamin 10-300 mg] 1 each PO Q6H PRN 7 Days #24 tablet PRN Reason: Pain metroNIDAZOLE [Flagyl] 500 mg PO BID 7 Days #14 tablet Home Medications: Sertraline [Zoloft] 50 mg PO DAILY 09/26/17 [History] Vistaril 09/26/17 [History] Ciprofloxacin [Cipro] 500 mg PO BID #14 tablet 09/30/17 [Rx] Docusate [Colace] 100 mg PO BID PRN #30 capsule 09/30/17 [Rx] Hydrocodone/Acetaminophen [Hydrocodone-Acetamin 10-300 mg] 1 each PO Q6H PRN 7 Days #24 tablet 09/30/17 [Rx] Ibuprofen [Motrin] 800 mg PO Q8HR PRN #42 tablet 09/30/17 [Rx] Ondansetron HCl [Zofran] 4 mg PO Q8HR PRN #15 tab 09/30/17 [Rx] metroNIDAZOLE [Flagyl] 500 mg PO BID 7 Days #14 tablet 09/30/17 [Rx] Allergies/Adverse Reactions: 3 Allergy/AdvReac Type Severity Reaction Status Date / Time No Known Allergies Allergy Verified 09/26/17 14:09 Date of admission: 09/26/17 07:30 Primary care physician: Harlan Mercedes CNP Labs on day of discharge: Labs from last 24 hours 09/30/17 09/30/17 04:05 04:05 WBC 8.0 RBC 3.69 L Hgb 10.6 L Hct 32.0 L MCV 86.7 MCH 28.7 MCHC 33.1 RDW 12.4 Plt Count 308 MPV 9.7 Immature Gran % 0.6 Seg Neutrophils % 68.5 Lymphocytes % 20.5 Monocytes % 5.2 Eosinophils % 4.7 Basophils % 0.5 Neutrophils # 5.5 Lymphocytes # 1.6 Monocytes # 0.4 Eosinophils # 0.4 Basophils # 0.0 Reactive Lymphocytes Present A Platelet Estimate Normal Sodium 139 Potassium 3.9 Chloride 106 Carbon Dioxide 27 BUN 8 Creatinine 0.66 Est GFR ( Amer) > 60 Est GFR (Non-Af Amer) > 60 BUN/Creatinine Ratio 12 Glucose 99 Calculated Osmolality 286 Calcium 9.1 - Patient Status Disposition: Home, Self-Care Condition: Good - Discharge Instructions Follow Up With: Jami Andrews CNP [Advanced Practice Nurse] - 10/19/17 3:00 pm Additional Instructions: General Surgical Discharge Instructions 1. No pushing, pulling, or lifting greater than 15 lbs for 2-4 weeks (depending upon procedure). 2. You may shower beginning today, but no tub baths, soaking, or swimming for 2 weeks. 3. You may resume driving when you are off narcotics and are safe to react in a car. 4. Take ibuprofen every 8 hours for discomfort. If this does not relieve discomfort, you may take the as needed Percocet. Take narcotics as directed. Do not take more narcotics then directed and do not share your narcotics with any other person. Do not drink alcohol while on narcotics. 5. Take stool softeners (Colace) or a water based laxative (Miralax) while taking narcotics. You may hold for loose stools. 6. Report any fevers greater than 100.5F, increase abdominal discomfort, drainage that looks like pus, increased redness or pain at the surgical site, or any vomiting. 7. Report any pain in the calves, shortness of breath, or rapid heartbeat. 8. Follow-up in the office as directed. 9. If you were prescribed antibiotics, do not stop them without talking to your provider. - Diet and Activity Activity: increase activity as tolerated Diet: advance to your usual diet <Manuel De León - Last Filed: 09/30/17 11:03> Date of Encounter: 09/30/17 - Discharge Diagnosis (1) Acute appendicitis Status: Inactive Qualifiers: Acute appendicitis type: with localized peritonitis Qualified Code(s): K35.3 - Acute appendicitis with localized peritonitis General Surgery Exam Initial Vital Signs Pulse Ox 94 09/26/17 01:05 - Hospital Course Hospital course: Ms. Villalobos is a 42 year old female - Time Spent with Patient Total time spent providing and/or coordinating discharge services: Date of admission: 09/26/17 07:30 Primary care physician: Harlan Mercedes CNP Labs on day of discharge: Labs from last 24 hours 09/30/17 09/30/17 04:05 04:05 WBC 8.0 RBC 3.69 L Hgb 10.6 L Hct 32.0 L MCV 86.7 MCH 28.7 MCHC 33.1 RDW 12.4 Plt Count 308 MPV 9.7 Immature Gran % 0.6 Seg Neutrophils % 68.5 Lymphocytes % 20.5 Monocytes % 5.2 Eosinophils % 4.7 Basophils % 0.5 Neutrophils # 5.5 Lymphocytes # 1.6 Monocytes # 0.4 Eosinophils # 0.4 Basophils # 0.0 Reactive Lymphocytes Present A Platelet Estimate Normal Sodium 139 Potassium 3.9 Chloride 106 Carbon Dioxide 27 BUN 8 Creatinine 0.66 Est GFR ( Amer) > 60 Est GFR (Non-Af Amer) > 60 BUN/Creatinine Ratio 12 Glucose 99 Calculated Osmolality 286 Calcium 9.1 - Attending Attestation I examined this patient and my medical decision-making was reviewed with the Resident Physician. I agree with the documented findings, disposition and treatment plan as described except to the extent set forth below. The patient is seen and evaluated with rest and on morning rounds. White blood cell count is normal. She is been afebrile for more than 24 hours. We will transition to oral antibiotics and discharge her to home. We will see her back next week. Manuel De León MD FACS
== END 2017-09-30 10:12 | disposition home or self-care (01) ==
LOC: 3ANU
PROVIDERS: ADMIT Surgery; ATTEND Surgery